=== PATIENT | male | born 1960 | race Caucasian/White ===

== ENCOUNTER 2018-11-30 05:08 | Day surgery (SDC) | payer BC ==
[2018-11-25 16:26] LABS: BASOPHILS # (AUTO) 0.1 X10'3 (0-0.2); BASOPHILS % (AUTO) 1.4 % (0-1); EOSINOPHILS # (AUTO) 0.1 X10'3 (0-0.9); EOSINOPHILS % (AUTO) 1.6 % (0-6); HEMATOCRIT 40.4 % (42.0-52.0); HEMOGLOBIN 13.3 g/dl (14.0-17.9); LYMPHOCYTES # (AUTO) 2.3 X10'3 (1.1-4.8); MEAN CORPUSCULAR HEMOGLOBIN 28.1 PG (27.0-31.0); MEAN CORPUSCULAR HGB CONC 32.8 g/dL (33.0-36.5); MEAN CORPUSCULAR VOLUME 85.6 FL (78-98); MEAN PLATELET VOLUME 8.2 FL (7.4-10.4); MONOCYTES # (AUTO) 0.8 X10'3 (0-0.9); NEUTROPHILS # (AUTO) 4.3 X10'3 (1.8-7.7); PLATELET COUNT 239 X10'3 (140-440); RED BLOOD COUNT 4.72 X10'6 (4.70-6.10); RED CELL DISTRIBUTION WIDTH 13.7 % (11.5-14.5); WHITE BLOOD COUNT 7.6 X10'3 (4.5-11.0)
[2018-11-25 16:39] LABS: PARTIAL THROMBOPLASTIN TIME 30 SECONDS (22-32)
[2018-11-25 16:42] LABS: ALBUMIN 3.5 G/DL (3.4-5.0); ANION GAP 8 (8-16); BLOOD UREA NITROGEN 15 MG/DL (7-18); BUN/CREATININE RATIO 16.7 (5.4-32.0); CALCIUM 9.7 MG/DL (8.5-10.1); CHLORIDE 106 MMOL/L (99-107); GLUCOSE 86 MG/DL (70-104); SODIUM 140 MMOL/L (135-145); TOTAL CARBON DIOXIDE 25.6 MMOL/L (24-32); eGFR 87 ML/MIN
[~2018-11-30] VITALS: Ht 182.9 cm; Wt 110.1 kg
[2018-11-30] VITALS (13 sets, daily range): BP systolic 114–167; BP diastolic 50–112
[2018-11-30] MEDS ORDERED: normal saline 1,000 ML IV SCH (05:30)
[2018-11-30] MEDS ORDERED: diphenhydrAMINE 25mg capsule PO PRN (05:30)
[2018-11-30] MEDS ORDERED: LORazepam 0.5 MG tablet PO PRN (05:30)
[2018-11-30] MEDS ORDERED: LISI1TAB11 PO (05:49)
[2018-11-30] MEDS ORDERED: OMEG1CAP46 PO (05:49)
[2018-11-30] MEDS ORDERED: ESOM20CA PO (05:49)
[2018-11-30] MEDS ORDERED: FERR256T PO (05:49)
[2018-11-30] MEDS ORDERED: CELE200C PO (05:49)
[2018-11-30] MEDS ORDERED: TURM5000 PO (05:49)
[2018-11-30] MEDS ORDERED: METH-360 PO (05:49)
[2018-11-30] MEDS ORDERED: fentaNYL/PF 50MCG/1 ML 2ML syringe ONE (07:26)
[2018-11-30] MEDS ORDERED: midazolam 2 mg/2 ml injection ONE (07:26)
[2018-11-30] MEDS ORDERED: iohexol 350MG/ML 100ml bottle IV ONE ×2 (07:27→08:05)
[2018-11-30] MEDS ORDERED: LIDOcaine 1% (10mg/ml)w/preservative injection 20ml MDV ONE (07:27)
[2018-11-30] MEDS ORDERED: HYDROcodone/acetaminophen 5mg/325mg tablet PO PRN (08:50)
[2018-11-30] MEDS ORDERED: HYDROcodone/acetaminophen 10/325mg tab PO PRN (08:50)
[2018-11-30] MEDS ORDERED: OXAZEpam 15mg capsule PO PRN (08:50)
[2018-11-30] MEDS ORDERED: ondansetron/PF 4mg/2ml inj IV PRN (08:50)
[2018-11-30] MEDS ORDERED: proCHLORperazine 10 MG/2 ml inj IV PRN (08:50)
[2018-12-16] MEDS ORDERED: KRIL1CAP22 PO (17:06)
[2018-12-16] MEDS ORDERED: LISI1TAB11 PO (17:06)
[2018-12-16] MEDS ORDERED: ESOM40CA49 PO (17:06)
[2018-12-16] MEDS ORDERED: LIDO700A32 TOP (17:06)
[2018-12-16] MEDS ORDERED: MAGN400C PO (17:06)
[2018-12-16] MEDS ORDERED: TURM538C PO (17:06)
[2018-12-16] MEDS ORDERED: FERR324T4 PO (17:06)
== END 2018-11-30 10:55 | disposition home or self-care (01) ==
LOC: SSTAY O 05:08
PROVIDERS: ATTEND Internal Medicine Interventional Cardiology
DX: I25.10 Atherosclerotic heart disease of native coronary artery without angina pectoris (principal); I10 Essential (primary) hypertension; E78.5 Hyperlipidemia, unspecified; D64.9 Anemia, unspecified; Z79.899 Other long term (current) drug therapy; E66.9 Obesity, unspecified
CPT/HCPCS: 36415; 80048; 85025; 85610; 85730; 93005; 93458; 99152; 99153; A6257; J1644; J2001; J2250; J3010; J7030; Q0163; Q9967; A4620; C1769

== ENCOUNTER 2018-12-20 05:25 | Inpatient (IN) | payer BC ==
[2018-12-16 13:21] LABS: ABG BASE EXCESS 0.9 mmol/L (-2.0-3.0); ABG HCO3 22.8 mmol/L (22.0-26.0); ABG OXYGEN SATURATION 97.7 % (95-98); ABG PCO2 (T) 29.2 mmHg (35.0-48.0); ABG PH (T) 7.511 (7.350-7.450); ABG PO2 (T) 94.7 mmHg (83-108); ALLEN'S TEST Positive; FCOHb 0.6 % (0.5-1.5); FMetHb 0.1 % (0.3-1.12); TOTAL HEMOGLOBIN 14.5 G/dl (14.0-18.0)
[2018-12-16 15:07] LABS: CLARITY,URINE CLEAR (Clear); COLOR,URINE STRAW (Yellow); GLUCOSE, URINE NEGATIVE (Neg); KETONES,URINE NEGATIVE (Neg); LEUKOCYTE ESTERASE ,URINE NEGATIVE (Neg); NITRITES, URINE NEGATIVE (Neg); OCCULT BLOOD,URINE NEGATIVE (Neg); PROTEIN,URINE NEGATIVE (Neg); UROBILINOGEN,URINE 0.2 E.U/dL (0.2-1.0)
[2018-12-16 15:08] LABS: UA COLLECTION TYPE VOIDED
[2018-12-16 15:13] LABS: BASOPHILS # (AUTO) 0.1 X10'3 (0-0.2); BASOPHILS % (AUTO) 0.9 % (0-1); EOSINOPHILS # (AUTO) 0.1 X10'3 (0-0.9); EOSINOPHILS % (AUTO) 0.7 % (0-6); LYMPHOCYTES # (AUTO) 1.5 X10'3 (1.1-4.8); LYMPHOCYTES % (AUTO) 16.2 % (21-51); MEAN CORPUSCULAR HEMOGLOBIN 28.2 PG (27.0-31.0); MEAN CORPUSCULAR HGB CONC 32.9 g/dL (33.0-36.5); MEAN CORPUSCULAR VOLUME 85.8 FL (78-98); MEAN PLATELET VOLUME 8.5 FL (7.4-10.4); MONOCYTES # (AUTO) 0.8 X10'3 (0-0.9); MONOCYTES % (AUTO) 8.9 % (2-12); NEUTROPHILS # (AUTO) 6.9 X10'3 (1.8-7.7); NEUTROPHILS % (AUTO) 73.3 % (42-75); PRE OP HEMATOCRIT 42.2 % (42.0-52.0); PRE OP HEMOGLOBIN 13.9 g/dL (14.0-17.9); PRE OP PLATELET COUNT 317 X10'3 (140-440); RED BLOOD COUNT 4.92 X10'6 (4.70-6.10); RED CELL DISTRIBUTION WIDTH 14.5 % (11.5-14.5)
[2018-12-16 15:25] LABS: HEMOGLOBIN A1C 5.5 % (4.5-6.2)
[2018-12-16 15:30] LABS: BLOOD UREA NITROGEN 15 MG/DL (7-18); BUN/CREATININE RATIO 17.4 (5.4-32.0); CHLORIDE 100 MMOL/L (99-107); CREATININE 0.86 MG/DL (0.60-1.10); PRE OP ANION GAP 9 (8-16); PRE OP GLUCOSE 107 MG/DL (70-104); PRE OP POTASSIUM 3.8 MMOL/L (3.4-5.1); PRE OP SODIUM 135 MMOL/L (135-145); TOTAL CARBON DIOXIDE 26.4 MMOL/L (24-32)
[2018-12-16 15:31] LABS: ALBUMIN/GLOBULIN RATIO 1.1 (1.1-1.5); ALKALINE PHOSPHATASE 100 IU/L (46-116); CALCIUM 10.4 MG/DL (8.5-10.1); PRE OP ALT 37 U/L (30-65); PRE OP AST 16 U/L (10-37); PRE OP BILIRUB, TOTAL 0.3 MG/DL (0.0-1.0); TOTAL PROTEIN 7.8 G/DL (6.4-8.2); eGFR > 90 ML/MIN
[~2018-12-20] VITALS: Ht 182.9 cm; Wt 109.9 kg
[2018-12-20] VITALS (16 sets, daily range): BP systolic 97–149; BP diastolic 56–96
[~2018-12-20 05:25] MED LIST: CELE200C PO; ESOM40CA49 PO; FERR324T PO; KRIL1CAP22 PO; LIDO700A32 TOP; LISI1TAB11 PO; MAGN400C PO; METH-360 PO; ROPIVAcaine 0.5% (5mg/ml) 30ml vial ONE; TURM5000 PO
[2018-12-20] MEDS ORDERED: vancomycin inj 1,500 MG in normal saline 300ml IV soln IV ONE (05:30)
[2018-12-20] MEDS ORDERED: ringers solution, lacted 1,000 ML IV SCH (05:30)
[2018-12-20] MEDS ORDERED: gabapentin 300mg capsule PO ONE (05:30)
[2018-12-20] MEDS ORDERED: cefazolin/dext.iso 2gm/100 ML IV ONE (05:30)
[2018-12-20] MEDS ORDERED: famotidine 20mg tablet PO ONE (05:30)
[2018-12-20] MEDS ORDERED: mupirocin 2% nasal ointment 1gm UD NS ONE (05:30)
[2018-12-20] MEDS ORDERED: metoprolol tartrate 12.5mg (1/2 tablet) PO ONE (05:30)
[2018-12-20] MEDS ORDERED: LIDOcaine 1% (10mg/ml) 2ml vial ONE (05:42)
[2018-12-20] MEDS ORDERED: LORazepam 2 mg/ml vial ONE ×2 (05:52→06:19)
[2018-12-20] MEDS ORDERED: nitroGLYCERIN in D5W 50mg/250ml (Tridil) infusion IV ONE (06:48)
[2018-12-20] MEDS ORDERED: isoflurane 100ml inhalation liquid IH ONE (06:48)
[2018-12-20] MEDS ORDERED: protamine sulf. 10mg/ml inj. IV ONE (06:48)
[2018-12-20] MEDS ORDERED: DOPamine/D5W 400mg/250ml bag IV ONE (06:48)
[2018-12-20] MEDS ORDERED: SUFENTANIL CITRATE 50 MCG/ML 2ml ampule IV ONE (07:00)
[2018-12-20] MEDS ORDERED: propofol inj 20 ML IV ONE (07:13)
[2018-12-20] MEDS ORDERED: rocuronium 10mg/ml inj IV ONE (07:13)
[2018-12-20] MEDS ORDERED: phenylephrine 10mg/ml inj. ONE ×2 (07:34→14:00)
[2018-12-20] MEDS ORDERED: pancuronium br 1mg/ml inj IV ONE (07:38)
[2018-12-20 07:40] LABS: ABG BASE EXCESS -1.7 mmol/L (-2.0-3.0); ABG HCO3 21.5 mmol/L (22.0-26.0); ABG OXYGEN SATURATION 99.8 % (95-98); ABG PCO2 31.5 mmHg (35.0-45.0); ABG PH 7.451 (7.350-7.450); CL (ABG) 102 mmol/L (99-107); FCOHb 0.6 % (0.5-1.5); FMetHb 0.3 % (0.3-1.12); FO2Hb 98.9 % (94-100); GLUCOSE (ABG) 142 mg/dl (70-105); IONIZED CA (ABG) 1.23 mmol/L (1.03-1.32); K (ABG) 3.9 mmol/L (3.3-5.1); NA (ABG) 135 mmol/L (135-145); TOTAL HEMOGLOBIN 11.9 G/dl (14.0-18.0)
[2018-12-20] MEDS ORDERED: heparin 10,000 units/1 ML INJ IR ONE (07:54)
[2018-12-20] MEDS ORDERED: papaverine 30 mg/ml 2ml inj. IA ONE (07:55)
[2018-12-20] MEDS ORDERED: albuterol 2.5 MG/3 ML nebule NEB PRN (08:20)
[2018-12-20 08:46] LABS: ABG BASE EXCESS -1.6 mmol/L (-2.0-3.0); ABG HCO3 21.5 mmol/L (22.0-26.0); ABG OXYGEN SATURATION 98.9 % (95-98); ABG PCO2 31.1 mmHg (35.0-45.0); ABG PH 7.458 (7.350-7.450); ABG PO2 134.4 mmHg (60.0-100.0); CL (ABG) 103 mmol/L (99-107); FCOHb 0.8 % (0.5-1.5); FMetHb 0.1 % (0.3-1.12); GLUCOSE (ABG) 138 mg/dl (70-105); IONIZED CA (ABG) 1.21 mmol/L (1.03-1.32); K (ABG) 4.3 mmol/L (3.3-5.1); NA (ABG) 133 mmol/L (135-145); TOTAL HEMOGLOBIN 11.6 G/dl (14.0-18.0)
[2018-12-20 09:15] LABS: ABG BASE EXCESS -1.5 mmol/L (-2.0-3.0); ABG HCO3 22.7 mmol/L (22.0-26.0); ABG OXYGEN SATURATION 99.8 % (95-98); ABG PCO2 36.2 mmHg (35.0-45.0); ABG PH 7.416 (7.350-7.450); ABG PO2 385.9 mmHg (60.0-100.0); CL (ABG) 101 mmol/L (99-107); FCOHb 0.5 % (0.5-1.5); FMetHb 0.3 % (0.3-1.12); GLUCOSE (ABG) 149 mg/dl (70-105); IONIZED CA (ABG) 1.12 mmol/L (1.03-1.32); K (ABG) 5.5 mmol/L (3.3-5.1); NA (ABG) 130 mmol/L (135-145); TOTAL HEMOGLOBIN 9.4 G/dl (14.0-18.0)
[2018-12-20 09:30] LABS: ABG BASE EXCESS VENOUS -1.2 mmol/L; ABG HCO3 VENOUS 23.6 mmol/L; ABG PCO2 VENOUS 39.5 mmHg; ABG PO2 VENOUS 56.3 mmHg; CL (ABG) 101 mmol/L (99-107); FCOHb VENOUS 0.7 %; FHHb VENOUS 12.4 %; FMetHb VENOUS 0.6 %; FO2Hb VENOUS 86.3 %; GLUCOSE (ABG) 146 mg/dl (70-105); IONIZED CA (ABG) 1.14 mmol/L (1.03-1.32); K (ABG) 5.1 mmol/L (3.3-5.1); NA (ABG) 131 mmol/L (135-145); TOTAL HEMOGLOBIN 9.6 G/dl (14.0-18.0)
[2018-12-20 09:30] LABS: ACT @ 1.70 U 259 SEC (193-297); ACT @ 2.84 U 357 SEC (260-420); BASELINE ACT 134 SEC (101-148)
[2018-12-20 09:51] LABS: ABG BASE EXCESS 0.6 mmol/L (-2.0-3.0); ABG HCO3 25.4 mmol/L (22.0-26.0); ABG OXYGEN SATURATION 99.5 % (95-98); ABG PCO2 41.2 mmHg (35.0-45.0); ABG PH 7.407 (7.350-7.450); ABG PO2 349.3 mmHg (60.0-100.0); CL (ABG) 101 mmol/L (99-107); FCOHb 0.2 % (0.5-1.5); FMetHb 0.5 % (0.3-1.12); FO2Hb 98.8 % (94-100); GLUCOSE (ABG) 149 mg/dl (70-105); IONIZED CA (ABG) 1.13 mmol/L (1.03-1.32); K (ABG) 5.1 mmol/L (3.3-5.1); NA (ABG) 132 mmol/L (135-145); TOTAL HEMOGLOBIN 9.8 G/dl (14.0-18.0)
[2018-12-20 10:16] LABS: ABG BASE EXCESS -6.4 mmol/L (-2.0-3.0); ABG HCO3 20.5 mmol/L (22.0-26.0); ABG PCO2 47.4 mmHg (35.0-45.0); ABG PH 7.254 (7.350-7.450); ABG PO2 328.8 mmHg (60.0-100.0); CL (ABG) 81 mmol/L (99-107); FCOHb 0.2 % (0.5-1.5); FMetHb 0.7 % (0.3-1.12); FO2Hb 98.1 % (94-100); GLUCOSE (ABG) 126 mg/dl (70-105); IONIZED CA (ABG) 0.99 mmol/L (1.03-1.32); K (ABG) 3.9 mmol/L (3.3-5.1); NA (ABG) 110 mmol/L (135-145); TOTAL HEMOGLOBIN 8.8 G/dl (14.0-18.0)
[2018-12-20 10:51] LABS: ABG BASE EXCESS 0.5 mmol/L (-2.0-3.0); ABG OXYGEN SATURATION 96.9 % (95-98); ABG PCO2 33.9 mmHg (35.0-45.0); ABG PH 7.467 (7.350-7.450); ABG PO2 95.3 mmHg (60.0-100.0); CL (ABG) 103 mmol/L (99-107); FCOHb 0.3 % (0.5-1.5); FMetHb 0.7 % (0.3-1.12); FO2Hb 95.9 % (94-100); GLUCOSE (ABG) 127 mg/dl (70-105); IONIZED CA (ABG) 1.28 mmol/L (1.03-1.32); K (ABG) 4.1 mmol/L (3.3-5.1); NA (ABG) 134 mmol/L (135-145); TOTAL HEMOGLOBIN 9.9 G/dl (14.0-18.0)
[2018-12-20] MEDS ORDERED: acetaminophen 1,000mg/100ml IV 100 ML IV ONE (10:55)
[2018-12-20] MEDS ORDERED: nitroGLYCERIN-Tridil 50MG/D5W 250 ML IV PRN (11:28)
[2018-12-20] MEDS ORDERED: DOPamine 400mg/D5W 250ml 250 ML IV PRN (11:28)
[2018-12-20] MEDS ORDERED: niCARDipine-NS 40mg/200ml IVPB 200 ML IV PRN (11:28)
[2018-12-20] MEDS ORDERED: sodium chloride 0.45% 1,000 ML IV SCH (11:28)
[2018-12-20] MEDS ORDERED: sodium phosphate inj. 30 MMOL in dextrose 5%-water 250 ML IV PRN (11:30)
[2018-12-20] MEDS ORDERED: magnesium 2GM in 50ml NS 50 ML IV PRN (11:30)
[2018-12-20] MEDS ORDERED: dextrose 50%-water 50ml dispensing syringe IV PRN (11:30)
[2018-12-20] MEDS ORDERED: ondansetron/PF 4mg/2ml inj IV PRN (11:30)
[2018-12-20] MEDS ORDERED: metoclopramide 5 mg/ml inj IV PRN (11:30)
[2018-12-20] MEDS ORDERED: normal saline 250ml IV soln 250 ML IV PRN (11:30)
[2018-12-20] MEDS ORDERED: pantoprazole 40 MG vial IV ONE (11:30)
[2018-12-20] MEDS ORDERED: magnesium hydroxide 30ml (MOM) UD suspension PO PRN (11:30)
[2018-12-20] MEDS ORDERED: potassium Cl 20 mEq SR tablet PO PRN (11:30)
[2018-12-20] MEDS ORDERED: Neutra Phos packet PO PRN (11:30)
[2018-12-20] MEDS ORDERED: morphine 4 MG/ML inj SYRINge IV PRN (11:30)
[2018-12-20] MEDS: LIDOcaine 5% patch TP SCH (11:30)
[2018-12-20] MEDS ORDERED: insulin regular, human inj. 100 UNITS in normal saline 100ml IV soln 100 ML IV SCH ×2 (11:30)
[2018-12-20] MEDS ORDERED: acetaminophen 325mg tablet PO PRN (11:30)
[2018-12-20] MEDS ORDERED: magnesium 4gm in 100ml NS 100 ML IV PRN (11:30)
[2018-12-20] MEDS ORDERED: sodium phosphate inj. 15 MMOL in dextrose 5%-water 150 ML IV PRN (11:30)
--- NOTE | 2018-12-20 11:30 | NUR ---
Pt arrived from [facility] accompanied by CVOR team. Report received from Dr. Ryan. Pt hemodynamically stable, sinus rhythm with frequent PVCs noted. Dopamine gtt infusing at 1 mcg/kg/min. Transferred to ICU monitors.
[2018-12-20 11:56] LABS: ABG BASE EXCESS 1.7 mmol/L (-2.0-3.0); ABG HCO3 26.5 mmol/L (22.0-26.0); ABG OXYGEN SATURATION 98.7 % (95-98); ABG PCO2 (T) 42.4 mmHg (35.0-48.0); ABG PH (T) 7.414 (7.350-7.450); ABG PO2 (T) 159.7 mmHg (83-108); FCOHb 0.3 % (0.5-1.5); FMetHb 0.2 % (0.3-1.12); FO2Hb 98.2 % (94-100); PEEP 5 cm H2O; RESPIRATORY RATE 12 b/min; TIDAL VOLUME 700 mL; TOTAL HEMOGLOBIN 12.2 G/dl (14.0-18.0)
[2018-12-20 12:35] LABS: BASOPHILS % (AUTO) 0.1 % (0-1); EOSINOPHILS % (AUTO) 0.2 % (0-6); HEMATOCRIT 34.1 % (42.0-52.0); HEMOGLOBIN 11.3 g/dl (14.0-17.9); LYMPHOCYTES # (AUTO) 0.9 X10'3 (1.1-4.8); LYMPHOCYTES % (AUTO) 7.5 % (21-51); MEAN CORPUSCULAR HEMOGLOBIN 28.5 PG (27.0-31.0); MEAN CORPUSCULAR HGB CONC 33.1 g/dL (33.0-36.5); MEAN PLATELET VOLUME 8.2 FL (7.4-10.4); MONOCYTES # (AUTO) 0.5 X10'3 (0-0.9); MONOCYTES % (AUTO) 4.3 % (2-12); NEUTROPHILS # (AUTO) 10.6 X10'3 (1.8-7.7); NEUTROPHILS % (AUTO) 87.9 % (42-75); PLATELET COUNT 186 X10'3 (140-440); RED BLOOD COUNT 3.97 X10'6 (4.70-6.10); RED CELL DISTRIBUTION WIDTH 14.8 % (11.5-14.5); WHITE BLOOD COUNT 12.1 X10'3 (4.5-11.0)
[2018-12-20] MEDS: insulin regular, human 100 UNIT in normal saline 100ml IV soln 99 ML IV SCH ×4 (12:38→21:44)
[2018-12-20 12:41] LABS: ALANINE AMINOTRANSFERASE 28 U/L (12-78); ALBUMIN 2.9 G/DL (3.4-5.0); ALBUMIN/GLOBULIN RATIO 1.2 (1.1-1.5); ALKALINE PHOSPHATASE 61 IU/L (46-116); ANION GAP 4 (8-16); ASPARTATE AMINO TRANSFERASE 33 U/L (10-37); BILIRUBIN,TOTAL 0.5 MG/DL (0.1-1.0); BLOOD UREA NITROGEN 13 MG/DL (7-18); BUN/CREATININE RATIO 11.1 (5.4-32.0); CALCIUM 9.5 MG/DL (8.5-10.1); CHLORIDE 108 MMOL/L (99-107); CREATININE 1.17 MG/DL (0.60-1.10); GLUCOSE 114 MG/DL (70-104); MAGNESIUM 3.1 MG/DL (1.5-2.4); PHOSPHORUS 1.3 MG/DL (2.3-4.5); POTASSIUM 4.1 MMOL/L (3.5-5.1); SODIUM 141 MMOL/L (135-145); TOTAL CARBON DIOXIDE 29.2 MMOL/L (24-32); TOTAL PROTEIN 5.3 G/DL (6.4-8.2); eGFR 64 ML/MIN
[2018-12-20] MEDS: gabapentin 300mg capsule PO SCH ×2 (12:44→20:59)
[2018-12-20] MEDS: insulin Lispro (HumaLOG) vial - multi-dose SQ SCH ×2 (13:00→18:00)
[2018-12-20 13:20] LABS: ACTIVATED CLOTTING TIME 115 SEC (101-148)
--- NOTE | 2018-12-20 13:30 | NUR ---
Pt BP down to 85/50 (62), CI 2.9, SVR 885, CVP 8. 250 mL 5% Albumin administered.
[2018-12-20 13:37] LABS: PARTIAL THROMBOPLASTIN TIME 25 SECONDS (22-32)
[2018-12-20] MEDS: albumin (Human) 5% 250ml 250 ML IV PRN ×3 (13:41→14:24)
[2018-12-20] MEDS ORDERED: methylPREDNISolone sod. succ. 500mg inj ONE (14:00)
[2018-12-20] MEDS ORDERED: heparin 10,000 units/1 ML INJ ONE ×2 (14:00)
[2018-12-20] MEDS ORDERED: aminocaproic acid 250 MG/1 ML inj. ONE (14:00)
[2018-12-20] MEDS ORDERED: heparin 1,000 units/ml 10ml inj ONE (14:00)
[2018-12-20] MEDS ORDERED: sodium bicarbonate (8.4%) 1 mEq/ml syringe ONE (14:00)
[2018-12-20] MEDS ORDERED: albumin (human) 25% 100 ML IV solution IV ONE (14:00)
[2018-12-20] MEDS ORDERED: magnesium sulf 1 GM/2 ML ONE (14:00)
[2018-12-20] MEDS ORDERED: calcium chloride 100 MG/1 ML inj IV ONE (14:00)
[2018-12-20] MEDS ORDERED: papaverine 30 mg/ml 2ml inj. ONE (14:00)
[2018-12-20] MEDS ORDERED: potassium Cl 2 mEq/ml inj IV ONE (14:00)
[2018-12-20] MEDS ORDERED: LIDOcaine 2% (20 mg/ml) 5ml cardiac syringe ONE (14:00)
[2018-12-20] MEDS: ketorolac tromethamine 15mg/ml inj. IV SCH ×2 (14:01→19:41)
[2018-12-20 14:16] LABS: ABG BASE EXCESS 0.8 mmol/L (-2.0-3.0); ABG HCO3 25.3 mmol/L (22.0-26.0); ABG OXYGEN SATURATION 97.3 % (95-98); ABG PCO2 (T) 40.2 mmHg (35.0-48.0); ABG PH (T) 7.417 (7.350-7.450); ABG PO2 (T) 100.8 mmHg (83-108); FCOHb 0.3 % (0.5-1.5); FMetHb 0.2 % (0.3-1.12); FO2Hb 96.8 % (94-100); PEEP 5 cm H2O; RESPIRATORY RATE 12 b/min; TIDAL VOLUME 700 mL; TOTAL HEMOGLOBIN 11.3 G/dl (14.0-18.0)
--- NOTE | 2018-12-20 14:30 | NUR ---
Pt responded well to volume, PVCs less frequent, ABG obtained.
--- NOTE | 2018-12-20 15:30 | NUR ---
Pt passed weening parameters. Pt extubated. Voice quality is clear and strong. Pt states, "I'm feeling good." Pt denies pain, complains of a substernal "pressure."
[2018-12-20] MEDS: ceFAZolin 1GM/D5W- ADD-VANTAGE 50 ML IV SCH ×2 (16:12→23:28)
[2018-12-20] MEDS: morphine 4 MG/ML inj SYRINge IV PRN ×2 (16:13→19:51)
[2018-12-20] MEDS: HYDROcodone/acetaminophen 10/325mg tab PO PRN ×2 (17:59→23:28)
--- NOTE | 2018-12-20 18:30 | NUR ---
Patient in room ICU 2044. I have received report from Rj MAGANA, and had the opportunity to ask questions and assume patient care.
--- NOTE | 2018-12-20 18:33 | NUR ---
Problems reprioritized. Patient report given, questions answered & plan of care reviewed with IZZY Jaffe.
[2018-12-20 18:41] LABS: BASOPHILS % (AUTO) 0 % (0-1); EOSINOPHILS % (AUTO) 0 % (0-6); HEMATOCRIT 28.4 % (42.0-52.0); HEMOGLOBIN 9.3 g/dl (14.0-17.9); LYMPHOCYTES # (AUTO) 0.3 X10'3 (1.1-4.8); LYMPHOCYTES % (AUTO) 2.4 % (21-51); MEAN CORPUSCULAR HEMOGLOBIN 28.2 PG (27.0-31.0); MEAN CORPUSCULAR HGB CONC 32.8 g/dL (33.0-36.5); MEAN CORPUSCULAR VOLUME 85.8 FL (78-98); MEAN PLATELET VOLUME 8.2 FL (7.4-10.4); MONOCYTES # (AUTO) 0.3 X10'3 (0-0.9); MONOCYTES % (AUTO) 2.6 % (2-12); NEUTROPHILS # (AUTO) 12.5 X10'3 (1.8-7.7); PLATELET COUNT 167 X10'3 (140-440); RED BLOOD COUNT 3.31 X10'6 (4.70-6.10); RED CELL DISTRIBUTION WIDTH 14.9 % (11.5-14.5); WHITE BLOOD COUNT 13.1 X10'3 (4.5-11.0)
[2018-12-20 18:52] LABS: ALBUMIN 3.3 G/DL (3.4-5.0); ANION GAP 14 (8-16); BLOOD UREA NITROGEN 16 MG/DL (7-18); BUN/CREATININE RATIO 12.9 (5.4-32.0); CALCIUM 8.7 MG/DL (8.5-10.1); CHLORIDE 105 MMOL/L (99-107); CREATININE 1.24 MG/DL (0.60-1.10); GLUCOSE 174 MG/DL (70-104); MAGNESIUM 2.1 MG/DL (1.5-2.4); PHOSPHORUS 2.4 MG/DL (2.3-4.5); POTASSIUM 4.2 MMOL/L (3.5-5.1); SODIUM 142 MMOL/L (135-145); TOTAL CARBON DIOXIDE 23.4 MMOL/L (24-32); eGFR 60 ML/MIN
[2018-12-20] MEDS: mupirocin 2% nasal ointment 1gm UD NS SCH (19:38)
[2018-12-20] MEDS: vancomycin/NS 1 GM ADD-VANTAGE 250 ML IV SCH (19:38)
[2018-12-20] MEDS: docusate sod 100mg capsule PO SCH (19:39)
--- NOTE | 2018-12-20 19:45 | NUR ---
PT resting in bed with no s/s of distress noted at this time. VSS. Visitors at bedside. CVP, AL and PA all transduced to Pressure tubing, and zeroed. CTs are CDI, serosanguineous drainage noted in tubing. Reeves draining to gravity. Bed is locked and low. Call light is within reach. Will continue to monitor.
--- NOTE | 2018-12-20 23:30 | NUR ---
PT sleeping with no s/s of distress noted at this time. VSS. Bed is locked and low. Call light is within reach. Will continue to monitor.
[2018-12-21] VITALS (24 sets, daily range): BP systolic 90–152; BP diastolic 52–89
[2018-12-21] MEDS: ketorolac tromethamine 15mg/ml inj. IV SCH ×2 (02:00→08:00)
[2018-12-21 02:49] LABS: BASOPHILS % (AUTO) 0.1 % (0-1); EOSINOPHILS % (AUTO) 0 % (0-6); HEMATOCRIT 25.6 % (42.0-52.0); HEMOGLOBIN 8.4 g/dl (14.0-17.9); LYMPHOCYTES # (AUTO) 0.6 X10'3 (1.1-4.8); LYMPHOCYTES % (AUTO) 3.6 % (21-51); MEAN CORPUSCULAR HEMOGLOBIN 28.3 PG (27.0-31.0); MEAN CORPUSCULAR HGB CONC 32.7 g/dL (33.0-36.5); MEAN CORPUSCULAR VOLUME 86.5 FL (78-98); MEAN PLATELET VOLUME 8.1 FL (7.4-10.4); MONOCYTES # (AUTO) 0.6 X10'3 (0-0.9); MONOCYTES % (AUTO) 3.8 % (2-12); NEUTROPHILS # (AUTO) 14.9 X10'3 (1.8-7.7); NEUTROPHILS % (AUTO) 92.5 % (42-75); PLATELET COUNT 156 X10'3 (140-440); RED BLOOD COUNT 2.96 X10'6 (4.70-6.10); RED CELL DISTRIBUTION WIDTH 14.8 % (11.5-14.5); WHITE BLOOD COUNT 16.2 X10'3 (4.5-11.0)
[2018-12-21 03:07] LABS: ALANINE AMINOTRANSFERASE 23 U/L (12-78); ALBUMIN/GLOBULIN RATIO 1.3 (1.1-1.5); ALKALINE PHOSPHATASE 47 IU/L (46-116); ANION GAP 6 (8-16); ASPARTATE AMINO TRANSFERASE 36 U/L (10-37); BILIRUBIN,TOTAL 0.4 MG/DL (0.1-1.0); BLOOD UREA NITROGEN 14 MG/DL (7-18); CALCIUM 8.6 MG/DL (8.5-10.1); CHLORIDE 105 MMOL/L (99-107); GLUCOSE 110 MG/DL (70-104); MAGNESIUM 1.9 MG/DL (1.5-2.4); PHOSPHORUS 3.1 MG/DL (2.3-4.5); POTASSIUM 4.3 MMOL/L (3.5-5.1); SODIUM 137 MMOL/L (135-145); TOTAL PROTEIN 5.4 G/DL (6.4-8.2); eGFR 76 ML/MIN
[2018-12-21 03:13] LABS: PARTIAL THROMBOPLASTIN TIME 29 SECONDS (22-32)
[2018-12-21] MEDS: potassium Cl 20mEq/100mL bag 100 ML IV PRN ×2 (03:25→05:44)
--- NOTE | 2018-12-21 05:30 | NUR ---
PT up to side of bed to dangle with 2 person assist. PT tolerated well. Stood @ side of bed and continued to tolerate well, no c/o light headedness or dizziness. PT now sitting up in chair. Call light is within reach. Will continue to monitor.
[2018-12-21] MEDS: HYDROcodone/acetaminophen 10/325mg tab PO PRN ×4 (05:54→21:42)
--- NOTE | 2018-12-21 06:40 | NUR ---
Problems reprioritized. Patient report given, questions answered & plan of care reviewed with Rj MAGANA.
[2018-12-21] MEDS: metoprolol tartrate 12.5mg (1/2 tablet) PO SCH ×2 (08:00→19:57)
[2018-12-21] MEDS: ceFAZolin 1GM/D5W- ADD-VANTAGE 50 ML IV SCH ×2 (08:00→15:39)
[2018-12-21] MEDS: aspirin 325mg tablet, delayed-release (Ecotrin) PO SCH (08:00)
[2018-12-21] MEDS: mupirocin 2% nasal ointment 1gm UD NS SCH ×2 (08:00→19:52)
[2018-12-21] MEDS: atorvastatin 10mg tablet PO SCH (08:00)
[2018-12-21] MEDS: docusate sod 100mg capsule PO SCH ×2 (08:00→19:53)
[2018-12-21] MEDS: vancomycin/NS 1 GM ADD-VANTAGE 250 ML IV SCH ×2 (08:00→19:52)
[2018-12-21] MEDS: LIDOcaine 5% patch TP SCH (08:00)
[2018-12-21] MEDS: gabapentin 300mg capsule PO SCH ×3 (08:00→21:35)
[2018-12-21] MEDS: insulin Lispro (HumaLOG) vial - multi-dose SQ SCH ×3 (09:18→18:58)
--- NOTE | 2018-12-21 10:30 | NUR ---
ART line removed, pressure held and pressure dressing applied to L wrist
--- NOTE | 2018-12-21 11:30 | NUR ---
PAC line discontinued, pressure held and gauze applied, RIJ dressing changed.
[2018-12-21] MEDS ORDERED: dextrose 50%-water 50ml dispensing syringe IV PRN ×2 (14:40)
[2018-12-21] MEDS ORDERED: MESSAGE TO PHARMACY PO ONE (14:40)
[2018-12-21] MEDS ORDERED: dextrose ORAL solution 15 GM/59 ML bottle PO PRN ×2 (14:40)
[2018-12-21] MEDS ORDERED: glucagon, human recombinant 1mg kit SUBCUT PRN (14:40)
--- NOTE | 2018-12-21 18:20 | NUR ---
Patient in room ICU 2044. I have received report from Neeraj Porras RN and had the opportunity to ask questions and assume patient care.
--- NOTE | 2018-12-21 18:24 | NUR ---
Problems re-prioritized. Patient report given, questions answered & plan of care reviewed with Alannah Guzman RN.
--- NOTE | 2018-12-21 19:30 | NUR ---
PT is sitting up in chair with visitors at bedside. VSS. PT on RA and tolerating well. PT states pain is under control at this time. Call light is within reach. Will continue to monitor.
[2018-12-21] MEDS: lactobacillus rhamnosus 10,000 MMU CELLS/CAPSULE PO SCH (19:53)
[2018-12-21] MEDS: insulin glargine (Lantus) pen - multi-dose SQ SCH (21:40)
--- NOTE | 2018-12-21 23:30 | NUR ---
PT is sleeping at this time. VSS. Bed is locked and low. Call light is within reach. Will continue to monitor.
[2018-12-22] VITALS (15 sets, daily range): BP systolic 102–134; BP diastolic 41–89
[2018-12-22] MEDS: ceFAZolin 1GM/D5W- ADD-VANTAGE 50 ML IV SCH (01:07)
[2018-12-22] MEDS: HYDROcodone/acetaminophen 10/325mg tab PO PRN ×2 (02:54→18:48)
--- NOTE | 2018-12-22 03:00 | NUR ---
PT woke up painful, PRN Hermon given and PT repositioned. Bed is locked and low. Call light is within reach. Will continue to monitor.
[2018-12-22 03:10] LABS: BASOPHILS % (AUTO) 0.2 % (0-1); EOSINOPHILS % (AUTO) 0 % (0-6); HEMATOCRIT 26.8 % (42.0-52.0); HEMOGLOBIN 8.8 g/dl (14.0-17.9); LYMPHOCYTES # (AUTO) 0.8 X10'3 (1.1-4.8); LYMPHOCYTES % (AUTO) 4.7 % (21-51); MEAN CORPUSCULAR HEMOGLOBIN 28.2 PG (27.0-31.0); MEAN CORPUSCULAR HGB CONC 32.6 g/dL (33.0-36.5); MEAN CORPUSCULAR VOLUME 86.3 FL (78-98); MEAN PLATELET VOLUME 8.1 FL (7.4-10.4); MONOCYTES # (AUTO) 1.2 X10'3 (0-0.9); MONOCYTES % (AUTO) 6.9 % (2-12); NEUTROPHILS # (AUTO) 14.7 X10'3 (1.8-7.7); NEUTROPHILS % (AUTO) 88.2 % (42-75); PLATELET COUNT 148 X10'3 (140-440); RED BLOOD COUNT 3.11 X10'6 (4.70-6.10); RED CELL DISTRIBUTION WIDTH 15.4 % (11.5-14.5); WHITE BLOOD COUNT 16.7 X10'3 (4.5-11.0)
[2018-12-22 03:17] LABS: ALBUMIN 3.1 G/DL (3.4-5.0); ANION GAP 3 (8-16); BLOOD UREA NITROGEN 18 MG/DL (7-18); BUN/CREATININE RATIO 20.2 (5.4-32.0); CHLORIDE 102 MMOL/L (99-107); CREATININE 0.89 MG/DL (0.60-1.10); GLUCOSE 153 MG/DL (70-104); MAGNESIUM 2.3 MG/DL (1.5-2.4); PHOSPHORUS 2.6 MG/DL (2.3-4.5); SODIUM 135 MMOL/L (135-145); TOTAL CARBON DIOXIDE 29.8 MMOL/L (24-32); eGFR 87 ML/MIN
--- NOTE | 2018-12-22 06:33 | NUR ---
Problems reprioritized. Patient report given, questions answered & plan of care reviewed with Ananth MAGANA.
[2018-12-22] MEDS ORDERED: magnesium Cl slow-release 64mg tablet PO PRN (07:00)
[2018-12-22] MEDS ORDERED: potassium CL 10mEq/100ml bag 100 ML IV PRN (07:00)
[2018-12-22] MEDS ORDERED: potassium Cl 20 mEq SR tablet PO PRN ×2 (07:00)
[2018-12-22] MEDS ORDERED: potassium Cl 40MEQ/NS 500ml 500 ML IV PRN (07:00)
[2018-12-22] MEDS ORDERED: magnesium 4gm in 100ml NS 100 ML IV PRN (07:00)
[2018-12-22] MEDS ORDERED: magnesium 2GM in 50ml NS 50 ML IV PRN (07:00)
[2018-12-22] MEDS: pantoprazole 40mg Tablet.DR PO SCH (07:22)
[2018-12-22] MEDS: gabapentin 300mg capsule PO SCH (07:49)
[2018-12-22] MEDS: lactobacillus rhamnosus 10,000 MMU CELLS/CAPSULE PO SCH ×2 (07:50→20:00)
[2018-12-22] MEDS: metoprolol tartrate 12.5mg (1/2 tablet) PO SCH ×2 (07:50→18:47)
[2018-12-22] MEDS: aspirin 325mg tablet, delayed-release (Ecotrin) PO SCH (07:50)
[2018-12-22] MEDS: docusate sod 100mg capsule PO SCH ×2 (07:50→18:54)
[2018-12-22] MEDS: atorvastatin 10mg tablet PO SCH (07:51)
[2018-12-22] MEDS: mupirocin 2% nasal ointment 1gm UD NS SCH (07:51)
[2018-12-22] MEDS: magnesium Cl slow-release 64mg tablet PO SCH ×3 (07:53→18:47)
[2018-12-22] MEDS: potassium Cl 20 mEq SR tablet PO SCH ×3 (07:53→18:55)
[2018-12-22] MEDS: LIDOcaine 5% patch TP SCH (08:00)
[2018-12-22] MEDS: K and/or MAG REPLACEMENT MC SCH (08:00)
--- NOTE | 2018-12-22 09:57 | NUR ---
Patient in room ICU 2044. I have received report from DESTINY Bennett RN and had the opportunity to ask questions and assume patient care.
--- NOTE | 2018-12-22 11:07 | NUR ---
Pt received from Ananth MAGANA and transferred from ICU 2044. Pt placed in bed and oriented to room, call light, hooked up to monitor system. Family at bedside,
[2018-12-22] MEDS: insulin Lispro (HumaLOG) vial - multi-dose SQ SCH (14:06)
--- NOTE | 2018-12-22 18:41 | NUR ---
Problems reprioritized. Patient report given, questions answered & plan of care reviewed with СВЕТЛАНА MAGANA.
[2018-12-22] MEDS ORDERED: metoprolol tartrate 12.5mg (1/2 tablet) PO SCH (18:50)
--- NOTE | 2018-12-22 19:38 | NUR ---
PT STATES HE IS USING FLUTTER AND IS ON A REGULAR BASIS, HOWEVER HE COULD NOT DEMONSTRATE FOR RT AT THE TIME DUE TO PT HAVING EPISODE OF TACHYCARDIA AND WAS WORRIED THAT HE WOULD HAVE ANOTHER EPISODE. Addendum: 12/22/18 at 0 by Bernadette Francois RT Amended: Links added.
[2018-12-22] MEDS: insulin glargine (Lantus) pen - multi-dose SQ SCH (21:41)
[2018-12-23 02:30] VITALS: BP 134/75
[2018-12-23 05:50] LABS: BASOPHILS % (AUTO) 0.3 % (0-1); EOSINOPHILS # (AUTO) 0.1 X10'3 (0-0.9); EOSINOPHILS % (AUTO) 1.4 % (0-6); HEMATOCRIT 26.2 % (42.0-52.0); HEMOGLOBIN 8.7 g/dl (14.0-17.9); LYMPHOCYTES # (AUTO) 1.3 X10'3 (1.1-4.8); LYMPHOCYTES % (AUTO) 12.8 % (21-51); MEAN CORPUSCULAR HEMOGLOBIN 28.7 PG (27.0-31.0); MEAN CORPUSCULAR HGB CONC 33.3 g/dL (33.0-36.5); MEAN CORPUSCULAR VOLUME 86.2 FL (78-98); MEAN PLATELET VOLUME 8.3 FL (7.4-10.4); MONOCYTES # (AUTO) 0.8 X10'3 (0-0.9); MONOCYTES % (AUTO) 7.9 % (2-12); NEUTROPHILS # (AUTO) 7.6 X10'3 (1.8-7.7); NEUTROPHILS % (AUTO) 77.6 % (42-75); PLATELET COUNT 150 X10'3 (140-440); RED BLOOD COUNT 3.04 X10'6 (4.70-6.10); RED CELL DISTRIBUTION WIDTH 14.6 % (11.5-14.5); WHITE BLOOD COUNT 9.8 X10'3 (4.5-11.0)
[2018-12-23 06:00] VITALS: BP 166/73
[2018-12-23 06:48] LABS: ALBUMIN 2.7 G/DL (3.4-5.0); ANION GAP 4 (8-16); BLOOD UREA NITROGEN 16 MG/DL (7-18); BUN/CREATININE RATIO 19.3 (5.4-32.0); CALCIUM 8.8 MG/DL (8.5-10.1); CHLORIDE 102 MMOL/L (99-107); CREATININE 0.83 MG/DL (0.60-1.10); GLUCOSE 108 MG/DL (70-104); POTASSIUM 4.2 MMOL/L (3.5-5.1); SODIUM 135 MMOL/L (135-145); TOTAL CARBON DIOXIDE 28.8 MMOL/L (24-32); eGFR > 90 ML/MIN
[2018-12-23] MEDS ORDERED: furosemide 40mg/4ml inj IV ONE (07:20)
[2018-12-23] MEDS: potassium Cl 20 mEq SR tablet PO SCH ×2 (07:31→21:00)
[2018-12-23] MEDS: lactobacillus rhamnosus 10,000 MMU CELLS/CAPSULE PO SCH ×2 (07:32→20:59)
[2018-12-23] MEDS: pantoprazole 40mg Tablet.DR PO SCH (07:32)
[2018-12-23] MEDS: docusate sod 100mg capsule PO SCH ×2 (07:32→20:59)
[2018-12-23] MEDS: magnesium Cl slow-release 64mg tablet PO SCH ×2 (07:32→21:01)
[2018-12-23] MEDS: atorvastatin 10mg tablet PO SCH (07:32)
[2018-12-23] MEDS: metoprolol tartrate 50mg tablet PO SCH ×2 (07:37→21:01)
[2018-12-23] MEDS: aspirin 81mg tab.chew PO SCH (07:38)
[2018-12-23] MEDS: K and/or MAG REPLACEMENT MC SCH (07:40)
[2018-12-23] MEDS: LIDOcaine 5% patch TP SCH (07:41)
[2018-12-23] MEDS ORDERED: metoprolol tartrate 25mg tablet PO SCH (08:00)
[2018-12-23 11:11] VITALS: BP 118/74
[2018-12-23] MEDS: HYDROcodone/acetaminophen 10/325mg tab PO PRN (13:02)
--- NOTE | 2018-12-23 14:23 | NUR ---
CABG consult, patient is s/p CABG x4 on 12/20, patient and family seen at bedside and given written post cardiac surgery diet education handout with verbal review and written heart healthy education handout with verbal review. Eating fair, 50-74% of no concentrated sweets. Pt reports his appetite was great right out of surgery but had a rough day yesterday. Agrees to ensure high protein with breakfast. Reports no currently problem with constipation and is receiving colace, he will communicate with RN if he has any problems with BM. Will continue to follow. Recommend: 1. continue no concentrated sweets 2. continue bowel care 3. Wt per rx 4. Send ensure high protein with breakfast Addendum: 12/23/18 at [address] Amended: Links added.
[2018-12-23 15:00] VITALS: BP 117/72
[2018-12-23 18:00] VITALS: BP 129/74
--- NOTE | 2018-12-23 18:35 | NUR ---
Patient in room MED 310. I have received report from IZZY Jimenez and had the opportunity to ask questions and assume patient care.
--- NOTE | 2018-12-23 18:37 | NUR ---
Problems reprioritized. Patient report given, questions answered & plan of care reviewed with Shital MAGANA.
[2018-12-23] MEDS ORDERED: amiodarone 150mg/dext, iso-os 100 ML IV ONE (19:35)
--- NOTE | 2018-12-23 20:00 | NUR ---
At approx. 1915 during this shift the patient's heart rate went up to 180 BPM. Patient had been on the commode having a BM at this time. Staff got the patient into bed. Patient became symptomatic. He reported that he could "feel his heart". Patient has been having frequent PVCs. He had greater than 5 beat run of Vtach prior to this shift and during this episode also greater than 5 beat run and then continued tachycardia with HR of 160s to 180s. I contacted Dr. Murillo and reported this to him. He ordered a loading dose of Amiodarone of 1.5 mg/100 mL and then following Amiodarone protocol. I will continue to monitor this patient.
[2018-12-23] MEDS: amiodarone/D5 360MG/200ML BAG 200 ML IV SCH (20:07)
[2018-12-23] MEDS: insulin glargine (Lantus) pen - multi-dose SQ SCH (21:00)
[2018-12-23] MEDS: lisinopril 10 MG tablet PO SCH (21:02)
[2018-12-23 22:00] VITALS: BP 128/77
[2018-12-24] VITALS (13 sets, daily range): BP systolic 120–155; BP diastolic 75–97
[2018-12-24] MEDS: amiodarone/D5 360MG/200ML BAG 200 ML IV SCH ×3 (01:55→16:33)
--- NOTE | 2018-12-24 03:23 | NUR ---
At approximately 0300 this shift, patient HR dropped down to into the low 40s. as low at 41 BPM. I noted that since approx. 0200 the patient's HR has been in sinus rhythm. I checked the patient's BP which is WNL and monitored the rhythm strip for several more minutes. The patient HR dropped approx. 5-6 more time into the low 40s. I contacted Dr. Murillo and reported this to Him. Dr. Murillo gave the order to stop the drip and this time and continue to monitor the patient. I will continue to monitor this patient for the duration of this shift and will report this to the oncoming shift.
--- NOTE | 2018-12-24 05:00 | NUR ---
At 0452 patient HR praveen up to 160s. Patient was having his blood drawn and I went in to check on him as he has been sleeping and his HR has been WNL in the 70s with no ectopy. When I walked in the room and began to speak with the patient His HR almost immediately increased to the 150s and as high as 160s with the monitor showing runs of non-sustained V-tach and showing in and out of A-fib. I contacted Dr. Murillo and he ordered the Amiodarone drip to be turned back on and that an order for cardiology consultation be put in place. I restarted the Amiodarone drip at 0.5 mg/minute with a rate of 16.6 mL/hr. I will continue to monitor patient for duration of shift.
[2018-12-24 05:59] LABS: BASOPHILS % (AUTO) 0.3 % (0-1); EOSINOPHILS # (AUTO) 0.2 X10'3 (0-0.9); EOSINOPHILS % (AUTO) 2.1 % (0-6); HEMOGLOBIN 9.7 g/dl (14.0-17.9); LYMPHOCYTES # (AUTO) 1.4 X10'3 (1.1-4.8); MEAN CORPUSCULAR HEMOGLOBIN 28.4 PG (27.0-31.0); MEAN CORPUSCULAR HGB CONC 33.3 g/dL (33.0-36.5); MEAN CORPUSCULAR VOLUME 85.3 FL (78-98); MEAN PLATELET VOLUME 8.2 FL (7.4-10.4); MONOCYTES # (AUTO) 0.9 X10'3 (0-0.9); MONOCYTES % (AUTO) 9.8 % (2-12); NEUTROPHILS # (AUTO) 6.3 X10'3 (1.8-7.7); NEUTROPHILS % (AUTO) 71.8 % (42-75); PLATELET COUNT 186 X10'3 (140-440); RED BLOOD COUNT 3.41 X10'6 (4.70-6.10); RED CELL DISTRIBUTION WIDTH 14.3 % (11.5-14.5); WHITE BLOOD COUNT 8.7 X10'3 (4.5-11.0)
--- NOTE | 2018-12-24 06:00 | NUR ---
Problems reprioritized. Patient report given, questions answered & plan of care reviewed with IZZY Morin.
[2018-12-24 06:30] LABS: ALBUMIN 2.8 G/DL (3.4-5.0); ANION GAP 6 (8-16); BLOOD UREA NITROGEN 12 MG/DL (7-18); BUN/CREATININE RATIO 16.9 (5.4-32.0); CALCIUM 9.5 MG/DL (8.5-10.1); CHLORIDE 103 MMOL/L (99-107); CREATININE 0.71 MG/DL (0.60-1.10); GLUCOSE 114 MG/DL (70-104); MAGNESIUM 2.1 MG/DL (1.5-2.4); POTASSIUM 4.1 MMOL/L (3.5-5.1); SODIUM 138 MMOL/L (135-145); eGFR > 90 ML/MIN
[2018-12-24] MEDS ORDERED: magnesium 2GM in 50ml NS 50 ML IV ONE (07:40)
[2018-12-24] MEDS: lactobacillus rhamnosus 10,000 MMU CELLS/CAPSULE PO SCH ×2 (07:56→21:18)
[2018-12-24] MEDS: metoprolol tartrate 50mg tablet PO SCH (07:58)
[2018-12-24] MEDS: docusate sod 100mg capsule PO SCH ×2 (07:58→21:17)
[2018-12-24] MEDS: aspirin 81mg tab.chew PO SCH (07:59)
[2018-12-24] MEDS: potassium Cl 20 mEq SR tablet PO SCH ×2 (07:59→21:19)
[2018-12-24] MEDS: pantoprazole 40mg Tablet.DR PO SCH (07:59)
[2018-12-24] MEDS: magnesium Cl slow-release 64mg tablet PO SCH ×2 (08:00→21:20)
[2018-12-24] MEDS: LIDOcaine 5% patch TP SCH (08:00)
[2018-12-24] MEDS: K and/or MAG REPLACEMENT MC SCH (08:00)
[2018-12-24] MEDS: lactose-reduced food (Ensure High Protein) 237ml bottle PO SCH (08:23)
[2018-12-24] MEDS: apixaban 5mg tablet PO SCH ×2 (09:04→21:18)
[2018-12-24] MEDS: insulin Lispro (HumaLOG) vial - multi-dose SQ SCH ×2 (09:10→14:15)
--- NOTE | 2018-12-24 09:30 | NUR ---
PATIENT HEART RHYTHM CONVERTED TO SR
[2018-12-24] MEDS ORDERED: metoprolol tartrate 25mg tablet PO ONE (09:35)
--- NOTE | 2018-12-24 12:47 | NUR ---
DR. YAO AT BEDSIDE. NEW ORDERS RECEIVED: AMIO 200MG PO BID TO START 12/25 0800, TURN AMIO GTT OFF 1 HR POST ORAL ADMINISTRATION.
--- NOTE | 2018-12-24 15:14 | NUR ---
MAYCOL AT BEDSIDE. UPDATED ON PATIENT CONDITION - MUFTI CONSULT, LOPRESSOR INCREASED, AMIO GTT TURN OFF PLAN AND AMIO PO START. NEW ORDER RECEIVED: PSYLLIUM SEED PACKET PO BID AFTER LUNCH AND AFTER DINNER.
--- NOTE | 2018-12-24 18:00 | NUR ---
Patient in room MED 310. I have received report from IZZY Morin and had the opportunity to ask questions and assume patient care.
--- NOTE | 2018-12-24 18:07 | NUR ---
pt report given to Micheline MAGANA; all questions answered.
[2018-12-24] MEDS ORDERED: atorvastatin 10mg tablet PO SCH (21:00)
[2018-12-24] MEDS: insulin glargine (Lantus) pen - multi-dose SQ SCH (21:00)
[2018-12-24] MEDS: metoprolol tartrate 25mg tablet PO SCH (21:20)
[2018-12-24] MEDS: lisinopril 10 MG tablet PO SCH (21:27)
[2018-12-25 02:00] VITALS: BP 138/88
[2018-12-25] MEDS: amiodarone/D5 360MG/200ML BAG 200 ML IV SCH (02:09)
[2018-12-25 06:00] VITALS: BP 141/85
--- NOTE | 2018-12-25 06:00 | NUR ---
Problems reprioritized. Patient report given, questions answered & plan of care reviewed with IZZY Morin.
--- NOTE | 2018-12-25 06:14 | NUR ---
Patient in room MED 310. I have received report from Micheline MAGANA and had the opportunity to ask questions and assume patient care.
[2018-12-25 06:35] LABS: BASOPHILS % (AUTO) 0.4 % (0-1); EOSINOPHILS # (AUTO) 0.2 X10'3 (0-0.9); EOSINOPHILS % (AUTO) 2.5 % (0-6); HEMATOCRIT 28.1 % (42.0-52.0); HEMOGLOBIN 9.3 g/dl (14.0-17.9); LYMPHOCYTES # (AUTO) 1.4 X10'3 (1.1-4.8); LYMPHOCYTES % (AUTO) 16.8 % (21-51); MEAN CORPUSCULAR HEMOGLOBIN 28.1 PG (27.0-31.0); MEAN CORPUSCULAR VOLUME 85.1 FL (78-98); MEAN PLATELET VOLUME 7.9 FL (7.4-10.4); MONOCYTES # (AUTO) 0.8 X10'3 (0-0.9); MONOCYTES % (AUTO) 9.5 % (2-12); NEUTROPHILS # (AUTO) 5.7 X10'3 (1.8-7.7); NEUTROPHILS % (AUTO) 70.8 % (42-75); PLATELET COUNT 224 X10'3 (140-440); RED CELL DISTRIBUTION WIDTH 14.2 % (11.5-14.5)
[2018-12-25 07:00] VITALS: BP 145/92
[2018-12-25] MEDS: lactobacillus rhamnosus 10,000 MMU CELLS/CAPSULE PO SCH (07:37)
[2018-12-25] MEDS: docusate sod 100mg capsule PO SCH (07:37)
[2018-12-25] MEDS: apixaban 5mg tablet PO SCH (07:37)
[2018-12-25] MEDS: aspirin 81mg tab.chew PO SCH (07:37)
[2018-12-25] MEDS: pantoprazole 40mg Tablet.DR PO SCH (07:37)
[2018-12-25] MEDS: metoprolol tartrate 25mg tablet PO SCH (07:38)
[2018-12-25] MEDS: lactose-reduced food (Ensure High Protein) 237ml bottle PO SCH (07:41)
[2018-12-25 07:54] LABS: ALBUMIN 2.5 G/DL (3.4-5.0); ANION GAP 8 (8-16); BLOOD UREA NITROGEN 11 MG/DL (7-18); BUN/CREATININE RATIO 13.1 (5.4-32.0); CALCIUM 9.5 MG/DL (8.5-10.1); CHLORIDE 104 MMOL/L (99-107); CREATININE 0.84 MG/DL (0.60-1.10); GLUCOSE 109 MG/DL (70-104); POTASSIUM 4.2 MMOL/L (3.5-5.1); SODIUM 139 MMOL/L (135-145); TOTAL CARBON DIOXIDE 27.2 MMOL/L (24-32); eGFR > 90 ML/MIN
[2018-12-25 08:00] VITALS: BP 128/76
[2018-12-25] MEDS: K and/or MAG REPLACEMENT MC SCH (08:00)
[2018-12-25] MEDS: LIDOcaine 5% patch TP SCH (08:00)
[2018-12-25] MEDS ORDERED: amiodarone 200mg tablet PO SCH (08:00)
[2018-12-25] MEDS: magnesium Cl slow-release 64mg tablet PO SCH (08:44)
[2018-12-25] MEDS: potassium Cl 20 mEq SR tablet PO SCH (08:44)
[2018-12-25] MEDS ORDERED: LISI10TA4 PO (10:38)
[2018-12-25] MEDS ORDERED: ATOR10TA PO (10:38)
[2018-12-25] MEDS ORDERED: APIX5TAB3 PO (10:38)
[2018-12-25] MEDS ORDERED: METO25TA6 PO (10:38)
[2018-12-25] MEDS ORDERED: ASPI-1265 PO (10:38)
[2018-12-25] MEDS ORDERED: AMIO200T40 PO (10:38)
[2018-12-25 11:00] VITALS: BP 128/79
--- NOTE | 2018-12-25 11:29 | NUR ---
discharge education provided; all questions answered. pt provided with follow up information. pt removed from cardiac monitoring and IV removed; cannula intact.
--- NOTE | 2018-12-25 11:30 | NUR ---
pt wheeled downstairs with all belongings.
== END 2018-12-25 11:30 | disposition home health service (06) | DRG 236 ==
LOC: PAS IN 05:25 → EDSTATUS 07:30 → ICU 2S 11:25 → MED 3N 12-22 10:37
PROVIDERS: ADMIT Thoracic Surgery (Cardiothoracic Vascular Surgery); ATTEND Thoracic Surgery (Cardiothoracic Vascular Surgery)
PROC: 021209W Bypass Coronary Artery, Three Arteries from Aorta with Autologous Venous Tissue, Open Approach (ICD-10-PCS; 2018-12-20)
PROC: 06BP4ZZ Excision of Right Saphenous Vein, Percutaneous Endoscopic Approach (ICD-10-PCS; 2018-12-20)
PROC: 02HQ32Z Insertion of Monitoring Device into Right Pulmonary Artery, Percutaneous Approach (ICD-10-PCS; 2018-12-20)
PROC: 02HV33Z Insertion of Infusion Device into Superior Vena Cava, Percutaneous Approach (ICD-10-PCS; 2018-12-20)
PROC: 5A1221Z Performance of Cardiac Output, Continuous (ICD-10-PCS; 2018-12-20)
PROC: B24BZZ4 Ultrasonography of Heart with Aorta, Transesophageal (ICD-10-PCS; 2018-12-20)
PROC: 02100Z9 Bypass Coronary Artery, One Artery from Left Internal Mammary, Open Approach (ICD-10-PCS; principal; 2018-12-20 06:48)
DX: I25.10 Atherosclerotic heart disease of native coronary artery without angina pectoris (principal); I47.2 Ventricular tachycardia; D64.9 Anemia, unspecified; E66.9 Obesity, unspecified; F17.200 Nicotine dependence, unspecified, uncomplicated; I10 Essential (primary) hypertension; I48.0 Paroxysmal atrial fibrillation; R94.39 Abnormal result of other cardiovascular function study; M19.90 Unspecified osteoarthritis, unspecified site; Z79.899 Other long term (current) drug therapy; Z82.49 Family history of ischemic heart disease and other diseases of the circulatory system; Z68.32 Body mass index [BMI] 32.0-32.9, adult; Z71.6 Tobacco abuse counseling; R00.1 Bradycardia, unspecified; T46.2X5A Adverse effect of other antidysrhythmic drugs, initial encounter; Y92.238 Other place in hospital as the place of occurrence of the external cause
CPT/HCPCS: 0232T; 93312; 93325; Z7506; Z7508; 36415; 36600; 71045; 71046; 80048; 80053; 81003; 82330; 82435; 82803; 82947; 82948; 83036; 83735; 84100; 84132; 84295; 85018; 85025; 85347; 85384; 85610; 85730; 86885; 86900; 86901; 86920; 87070; 93005; 93880; 93922; 93970; 94002; 94010; 94667; 94668; 94760; 97110; 97116; 97161; 97530; A6255; A6258; A6402; A6449; A7000; A7048; C1751; C9113; G0378; J0131; J0282; J0690; J1265; J1644; J1815; J1885; J1940; J2001; J2060; J2150; J2270; J2370; J2405; J2440; J2704; J2720; J2795; J2930; J3370; J3475; J3480; J3490; J7030; J7060; J7120; P9045; P9047

== ENCOUNTER 2019-01-11 14:35 | Inpatient (IN) | payer BC ==
[2019-01-11] VITALS (7 sets, daily range): BP systolic 128–160; BP diastolic 77–85
[~2019-01-11] VITALS: Ht 182.9 cm; Wt 105.5 kg
[~2019-01-11 14:35] MED LIST changes: +AMIO200T40 PO; +APIX5TAB3 PO; +ASPI-1265 PO; +ATOR10TA PO; +LISI10TA4 PO; -LISI1TAB11 PO; +METO25TA6 PO; -ROPIVAcaine 0.5% (5mg/ml) 30ml vial ONE
[2019-01-11 15:39] LABS: BASOPHILS # (AUTO) 0.1 X10'3 (0-0.2); BASOPHILS % (AUTO) 0.9 % (0-1); EOSINOPHILS # (AUTO) 0.4 X10'3 (0-0.9); EOSINOPHILS % (AUTO) 4.8 % (0-6); HEMATOCRIT 22.2 % (42.0-52.0); HEMOGLOBIN 7.4 g/dl (14.0-17.9); LYMPHOCYTES # (AUTO) 1.2 X10'3 (1.1-4.8); LYMPHOCYTES % (AUTO) 15.6 % (21-51); MEAN CORPUSCULAR HEMOGLOBIN 26.9 PG (27.0-31.0); MEAN CORPUSCULAR VOLUME 81.3 FL (78-98); MEAN PLATELET VOLUME 6.7 FL (7.4-10.4); MONOCYTES # (AUTO) 0.8 X10'3 (0-0.9); MONOCYTES % (AUTO) 10.5 % (2-12); NEUTROPHILS # (AUTO) 5.3 X10'3 (1.8-7.7); NEUTROPHILS % (AUTO) 68.2 % (42-75); PLATELET COUNT 428 X10'3 (140-440); RED BLOOD COUNT 2.74 X10'6 (4.70-6.10); RED CELL DISTRIBUTION WIDTH 16.4 % (11.5-14.5); WHITE BLOOD COUNT 7.8 X10'3 (4.5-11.0)
[2019-01-11 15:50] LABS: ALANINE AMINOTRANSFERASE 45 U/L (12-78); ALBUMIN 2.9 G/DL (3.4-5.0); ALBUMIN/GLOBULIN RATIO 0.8 (1.1-1.5); ALKALINE PHOSPHATASE 98 IU/L (46-116); ANION GAP 7 (8-16); ASPARTATE AMINO TRANSFERASE 20 U/L (10-37); BILIRUBIN,TOTAL 0.3 MG/DL (0.1-1.0); BLOOD UREA NITROGEN 9 MG/DL (7-18); BUN/CREATININE RATIO 9.3 (5.4-32.0); CALCIUM 9.2 MG/DL (8.5-10.1); CHLORIDE 104 MMOL/L (99-107); CREATININE 0.97 MG/DL (0.60-1.10); GLUCOSE 114 MG/DL (70-104); POTASSIUM 3.8 MMOL/L (3.5-5.1); SODIUM 136 MMOL/L (135-145); TOTAL CARBON DIOXIDE 25.2 MMOL/L (24-32); TOTAL PROTEIN 6.7 G/DL (6.4-8.2); eGFR 79 ML/MIN
[2019-01-11 15:53] LABS: PARTIAL THROMBOPLASTIN TIME 27 SECONDS (22-32)
[2019-01-11 16:15] LABS: CLARITY,URINE CLEAR (Clear); COLOR,URINE YELLOW (Yellow); GLUCOSE, URINE NEGATIVE (Neg); KETONES,URINE NEGATIVE (Neg); LEUKOCYTE ESTERASE ,URINE NEGATIVE (Neg); NITRITES, URINE NEGATIVE (Neg); OCCULT BLOOD,URINE NEGATIVE (Neg); PROTEIN,URINE NEGATIVE (Neg); UROBILINOGEN,URINE 0.2 E.U/dL (0.2-1.0)
[2019-01-11 16:16] LABS: UA COLLECTION TYPE NON-SPECIFIED
[2019-01-11] MEDS ORDERED: potassium Cl 40MEQ/NS 500ml 500 ML IV PRN (16:35)
[2019-01-11] MEDS ORDERED: potassium CL 10mEq/100ml bag 100 ML IV PRN (16:35)
[2019-01-11] MEDS ORDERED: magnesium hydroxide 30ml (MOM) UD suspension PO PRN (16:35)
[2019-01-11] MEDS ORDERED: magnesium Cl slow-release 64mg tablet PO PRN (16:35)
[2019-01-11] MEDS ORDERED: magnesium 2GM in 50ml NS 50 ML IV PRN (16:35)
[2019-01-11] MEDS ORDERED: mag hydrox/Alum hydrox/simeth 30ml oral suspension PO PRN (16:35)
[2019-01-11] MEDS ORDERED: acetaminophen 325mg tablet PO PRN (16:35)
[2019-01-11] MEDS ORDERED: potassium Cl 20 mEq SR tablet PO PRN ×2 (16:35)
[2019-01-11] MEDS ORDERED: magnesium 4gm in 100ml NS 100 ML IV PRN (16:35)
[2019-01-11] MEDS ORDERED: ondansetron/PF 4mg/2ml inj IV PRN (16:35)
[2019-01-11] MEDS ORDERED: ESOM40CA49 PO (16:58)
[2019-01-11] MEDS ORDERED: ATOR20TA66 PO (16:58)
[2019-01-11] MEDS ORDERED: APIX5TAB3 PO (16:58)
[2019-01-11] MEDS ORDERED: METO50TA17 PO (16:58)
[2019-01-11] MEDS ORDERED: AMIO200T40 PO (16:58)
[2019-01-11] MEDS ORDERED: acetaminophen 325mg tablet PO ONE (17:30)
[2019-01-11] MEDS ORDERED: diphenhydrAMINE 25mg capsule PO ONE (17:30)
--- NOTE | 2019-01-11 19:00 | NUR ---
pt brought to unit via gurney from ER and placed in 347B. oriented to unit, call light within reach, in stable condition. will continue to monitor
[2019-01-11 19:42] LABS: BASOPHILS # (AUTO) 0.1 X10'3 (0-0.2); BASOPHILS % (AUTO) 0.8 % (0-1); EOSINOPHILS # (AUTO) 0.3 X10'3 (0-0.9); EOSINOPHILS % (AUTO) 3.7 % (0-6); HEMATOCRIT 23.9 % (42.0-52.0); HEMOGLOBIN 7.6 g/dl (14.0-17.9); LYMPHOCYTES # (AUTO) 1.3 X10'3 (1.1-4.8); LYMPHOCYTES % (AUTO) 14.3 % (21-51); MEAN CORPUSCULAR HEMOGLOBIN 25.8 PG (27.0-31.0); MEAN CORPUSCULAR HGB CONC 31.8 g/dL (33.0-36.5); MEAN CORPUSCULAR VOLUME 81.1 FL (78-98); MEAN PLATELET VOLUME 6.7 FL (7.4-10.4); MONOCYTES # (AUTO) 0.6 X10'3 (0-0.9); NEUTROPHILS # (AUTO) 6.7 X10'3 (1.8-7.7); NEUTROPHILS % (AUTO) 74.2 % (42-75); PLATELET COUNT 444 X10'3 (140-440); RED BLOOD COUNT 2.95 X10'6 (4.70-6.10); RED CELL DISTRIBUTION WIDTH 16.8 % (11.5-14.5); WHITE BLOOD COUNT 9.1 X10'3 (4.5-11.0)
[2019-01-11] MEDS: atorvastatin 20mg tablet PO SCH (20:21)
[2019-01-11] MEDS: metoprolol tartrate 50mg tablet PO SCH (20:22)
[2019-01-11] MEDS: amiodarone 200mg tablet PO SCH (20:22)
[2019-01-12] VITALS (9 sets, daily range): BP systolic 106–147; BP diastolic 67–91
--- NOTE | 2019-01-12 01:28 | NUR ---
Pt had BM, well formed, with blood in toilet. Pt states this is consistent with previous symptoms since starting anticoagulants post CABG surgery.
[2019-01-12 01:44] LABS: BASOPHILS # (AUTO) 0.1 X10'3 (0-0.2); EOSINOPHILS # (AUTO) 0.4 X10'3 (0-0.9); EOSINOPHILS % (AUTO) 4.6 % (0-6); HEMATOCRIT 23.7 % (42.0-52.0); HEMOGLOBIN 7.6 g/dl (14.0-17.9); LYMPHOCYTES # (AUTO) 1.8 X10'3 (1.1-4.8); LYMPHOCYTES % (AUTO) 21.6 % (21-51); MEAN CORPUSCULAR HEMOGLOBIN 26.3 PG (27.0-31.0); MEAN CORPUSCULAR HGB CONC 32.1 g/dL (33.0-36.5); MEAN CORPUSCULAR VOLUME 81.9 FL (78-98); MONOCYTES # (AUTO) 0.7 X10'3 (0-0.9); MONOCYTES % (AUTO) 8.3 % (2-12); NEUTROPHILS # (AUTO) 5.4 X10'3 (1.8-7.7); NEUTROPHILS % (AUTO) 64.5 % (42-75); PLATELET COUNT 382 X10'3 (140-440); RED CELL DISTRIBUTION WIDTH 16.5 % (11.5-14.5); WHITE BLOOD COUNT 8.4 X10'3 (4.5-11.0)
[2019-01-12 01:51] LABS: ALANINE AMINOTRANSFERASE 44 U/L (12-78); ALBUMIN 2.7 G/DL (3.4-5.0); ALBUMIN/GLOBULIN RATIO 0.8 (1.1-1.5); ALKALINE PHOSPHATASE 89 IU/L (46-116); ANION GAP 6 (8-16); ASPARTATE AMINO TRANSFERASE 17 U/L (10-37); BILIRUBIN,TOTAL 0.7 MG/DL (0.1-1.0); BLOOD UREA NITROGEN 8 MG/DL (7-18); BUN/CREATININE RATIO 8.7 (5.4-32.0); CALCIUM 9.3 MG/DL (8.5-10.1); CHLORIDE 104 MMOL/L (99-107); CREATININE 0.92 MG/DL (0.60-1.10); GLUCOSE 103 MG/DL (70-104); MAGNESIUM 2.1 MG/DL (1.5-2.4); POTASSIUM 3.9 MMOL/L (3.5-5.1); SODIUM 137 MMOL/L (135-145); TOTAL CARBON DIOXIDE 26.6 MMOL/L (24-32); TOTAL PROTEIN 6.1 G/DL (6.4-8.2); eGFR 84 ML/MIN
[2019-01-12] MEDS ORDERED: diltiazem 5mg/ml 5ml inj. IV ONE ×2 (06:00→17:50)
--- NOTE | 2019-01-12 06:04 | NUR ---
public works inspector here to push nilda.
--- NOTE | 2019-01-12 06:21 | NUR ---
Problems reprioritized. Patient report given, questions answered & plan of care reviewed with IZZY Powell.
--- NOTE | 2019-01-12 06:21 | NUR ---
Tele confirmed converted back to NSR.
--- NOTE | 2019-01-12 06:44 | NUR ---
Patient in room [facility] 347. I have received report from Joslyn MAGANA and had the opportunity to ask questions and assume patient care.
[2019-01-12] MEDS: amiodarone 200mg tablet PO SCH ×2 (07:40→21:30)
[2019-01-12] MEDS: pantoprazole 40mg Tablet.DR PO SCH (07:40)
[2019-01-12] MEDS: metoprolol tartrate 50mg tablet PO SCH (07:41)
[2019-01-12] MEDS: K and/or MAG REPLACEMENT MC SCH (07:43)
[2019-01-12 08:05] LABS: BASOPHILS # (AUTO) 0.1 X10'3 (0-0.2); BASOPHILS % (AUTO) 0.8 % (0-1); EOSINOPHILS # (AUTO) 0.4 X10'3 (0-0.9); EOSINOPHILS % (AUTO) 4.8 % (0-6); HEMATOCRIT 26.1 % (42.0-52.0); HEMOGLOBIN 8.6 g/dl (14.0-17.9); LYMPHOCYTES # (AUTO) 1.4 X10'3 (1.1-4.8); LYMPHOCYTES % (AUTO) 15.5 % (21-51); MEAN CORPUSCULAR HEMOGLOBIN 26.9 PG (27.0-31.0); MEAN CORPUSCULAR HGB CONC 33.1 g/dL (33.0-36.5); MEAN CORPUSCULAR VOLUME 81.3 FL (78-98); MEAN PLATELET VOLUME 6.9 FL (7.4-10.4); MONOCYTES # (AUTO) 0.8 X10'3 (0-0.9); MONOCYTES % (AUTO) 9.6 % (2-12); NEUTROPHILS # (AUTO) 6.1 X10'3 (1.8-7.7); NEUTROPHILS % (AUTO) 69.3 % (42-75); PLATELET COUNT 385 X10'3 (140-440); RED BLOOD COUNT 3.22 X10'6 (4.70-6.10); RED CELL DISTRIBUTION WIDTH 16.2 % (11.5-14.5); WHITE BLOOD COUNT 8.8 X10'3 (4.5-11.0)
[2019-01-12 13:29] LABS: BASOPHILS % (AUTO) 0.6 % (0-1); EOSINOPHILS # (AUTO) 0.2 X10'3 (0-0.9); EOSINOPHILS % (AUTO) 2.7 % (0-6); HEMATOCRIT 26.6 % (42.0-52.0); HEMOGLOBIN 8.7 g/dl (14.0-17.9); LYMPHOCYTES % (AUTO) 12.8 % (21-51); MEAN CORPUSCULAR HEMOGLOBIN 26.9 PG (27.0-31.0); MEAN CORPUSCULAR HGB CONC 32.6 g/dL (33.0-36.5); MEAN CORPUSCULAR VOLUME 82.4 FL (78-98); MEAN PLATELET VOLUME 6.8 FL (7.4-10.4); MONOCYTES # (AUTO) 0.6 X10'3 (0-0.9); MONOCYTES % (AUTO) 7.3 % (2-12); NEUTROPHILS # (AUTO) 6.1 X10'3 (1.8-7.7); NEUTROPHILS % (AUTO) 76.6 % (42-75); PLATELET COUNT 366 X10'3 (140-440); RED BLOOD COUNT 3.23 X10'6 (4.70-6.10); RED CELL DISTRIBUTION WIDTH 15.9 % (11.5-14.5)
--- NOTE | 2019-01-12 16:31 | NUR ---
patient seen by Dr Shah and DR Blevins . Regular diet initiated . patient still having bloody stools. Dr Shah aware. BID Hemoglobin ordered. will continue to monitor.
--- NOTE | 2019-01-12 17:24 | NUR ---
patient HR 130 b/p 145/92 o2 sats 97% . Tele called also wrt HR. will monitor.
--- NOTE | 2019-01-12 17:44 | NUR ---
second call from Tele patient has converted to afib. Dr Shah paged again.
[2019-01-12] MEDS ORDERED: diltiazem CD 120mg capsule (once-daily) PO ONE (17:50)
--- NOTE | 2019-01-12 17:59 | NUR ---
orders placed by Dr Shah for cardizem. PCU staff nurse paged to push dejuanzem. see emar
--- NOTE | 2019-01-12 18:16 | NUR ---
pharmacy called to say patient would need to be on a monitor to have second IV dose of cardizem. Cardizem 120mg given PO will continue to monitor. cgarge nurse aware
--- NOTE | 2019-01-12 18:53 | NUR ---
patient converted back to SR per telemedicine physician. cardizem IV not needed at this time. Dr Shah aware.
[2019-01-12] MEDS: psyllium seed 3.4 gm packet PO SCH ×2 (19:31→21:00)
[2019-01-12] MEDS: docusate sod 100mg capsule PO SCH ×2 (20:00→21:30)
[2019-01-12] MEDS: metoprolol tartrate 25mg tablet PO SCH (20:00)
[2019-01-12 20:22] LABS: HEMATOCRIT 27.4 % (42.0-52.0); MEAN CORPUSCULAR HEMOGLOBIN 26.8 PG (27.0-31.0); MEAN CORPUSCULAR HGB CONC 32.8 g/dL (33.0-36.5); MEAN CORPUSCULAR VOLUME 81.6 FL (78-98); MEAN PLATELET VOLUME 6.9 FL (7.4-10.4); PLATELET COUNT 393 X10'3 (140-440); RED BLOOD COUNT 3.35 X10'6 (4.70-6.10); RED CELL DISTRIBUTION WIDTH 16.1 % (11.5-14.5); WHITE BLOOD COUNT 8.9 X10'3 (4.5-11.0)
[2019-01-12] MEDS: atorvastatin 20mg tablet PO SCH (21:29)
--- NOTE | 2019-01-12 23:40 | NUR ---
Patient in room [facility] 347. I have received report from IZZY SANCHEZ and had the opportunity to ask questions and assume patient care.
--- NOTE | 2019-01-12 23:40 | NUR ---
Problems reprioritized. Patient report given, questions answered & plan of care reviewed with Joslyn MAGANA.
--- NOTE | 2019-01-12 23:53 | NUR ---
Tele called to say patients HR was dipping down in 40's. Checked on patient who was sleeping deeply. O2 Monitor put on patient back up to 87 HR. Charge nurse aware. will continue as staff to monitor.
--- NOTE | 2019-01-13 00:37 | NUR ---
Notify Dr. Solares for pt had aflutter and HR of 127bpm, BP 158/101, pt asymptomatic, and no new orders from
--- NOTE | 2019-01-13 01:58 | NUR ---
notified Dr. Solares for patient's another aflutter with HR of 130's, pt at rest sleeping Addendum: 01/13/19 at 0159 by Elvira Varma RN Amended: Links added.
--- NOTE | 2019-01-13 03:10 | NUR ---
called Dr. Solares for pt another aflutter, HR 130's bp 128/71, pt in no distress. Addendum: 01/13/19 at 0311 by Elvira Varma RN Amended: Links added.
--- NOTE | 2019-01-13 04:03 | NUR ---
Dr. Solares ordered continuous pulse oximeter for patient,
[2019-01-13 04:40] LABS: BASOPHILS # (AUTO) 0.1 X10'3 (0-0.2); BASOPHILS % (AUTO) 0.8 % (0-1); EOSINOPHILS # (AUTO) 0.3 X10'3 (0-0.9); EOSINOPHILS % (AUTO) 4.4 % (0-6); HEMATOCRIT 26.2 % (42.0-52.0); HEMOGLOBIN 8.7 g/dl (14.0-17.9); LYMPHOCYTES # (AUTO) 1.1 X10'3 (1.1-4.8); LYMPHOCYTES % (AUTO) 14.4 % (21-51); MEAN CORPUSCULAR HEMOGLOBIN 27.1 PG (27.0-31.0); MEAN CORPUSCULAR HGB CONC 33.1 g/dL (33.0-36.5); MEAN CORPUSCULAR VOLUME 81.9 FL (78-98); MEAN PLATELET VOLUME 6.9 FL (7.4-10.4); MONOCYTES # (AUTO) 0.8 X10'3 (0-0.9); MONOCYTES % (AUTO) 9.8 % (2-12); NEUTROPHILS # (AUTO) 5.4 X10'3 (1.8-7.7); NEUTROPHILS % (AUTO) 70.6 % (42-75); PLATELET COUNT 358 X10'3 (140-440); RED CELL DISTRIBUTION WIDTH 16.5 % (11.5-14.5); WHITE BLOOD COUNT 7.7 X10'3 (4.5-11.0)
[2019-01-13 04:46] LABS: ALANINE AMINOTRANSFERASE 40 U/L (12-78); ALBUMIN 2.6 G/DL (3.4-5.0); ALBUMIN/GLOBULIN RATIO 0.7 (1.1-1.5); ALKALINE PHOSPHATASE 95 IU/L (46-116); ANION GAP 7 (8-16); ASPARTATE AMINO TRANSFERASE 12 U/L (10-37); BILIRUBIN,TOTAL 0.6 MG/DL (0.1-1.0); BLOOD UREA NITROGEN 6 MG/DL (7-18); BUN/CREATININE RATIO 7.3 (5.4-32.0); CALCIUM 9.1 MG/DL (8.5-10.1); CHLORIDE 104 MMOL/L (99-107); CREATININE 0.82 MG/DL (0.60-1.10); GLUCOSE 125 MG/DL (70-104); MAGNESIUM 1.9 MG/DL (1.5-2.4); POTASSIUM 3.6 MMOL/L (3.5-5.1); SODIUM 136 MMOL/L (135-145); TOTAL CARBON DIOXIDE 25.3 MMOL/L (24-32); TOTAL PROTEIN 6.2 G/DL (6.4-8.2); eGFR > 90 ML/MIN
--- NOTE | 2019-01-13 06:07 | NUR ---
Patient in room [facility] 347. I have received report from Sarah Francis RN and had the opportunity to ask questions and assume patient care.
--- NOTE | 2019-01-13 06:07 | NUR ---
Problems reprioritized. Patient report given, questions answered & plan of care reviewed with IZZY Olguin. Addendum: 01/13/19 at 0607 by Elvira Varma RN Amended: Links added.
[2019-01-13 07:00] VITALS: BP 131/71
[2019-01-13 07:25] LABS: BASOPHILS # (AUTO) 0.1 X10'3 (0-0.2); EOSINOPHILS # (AUTO) 0.4 X10'3 (0-0.9); EOSINOPHILS % (AUTO) 4.5 % (0-6); HEMATOCRIT 29.3 % (42.0-52.0); HEMOGLOBIN 9.5 g/dl (14.0-17.9); LYMPHOCYTES # (AUTO) 1.3 X10'3 (1.1-4.8); LYMPHOCYTES % (AUTO) 14.2 % (21-51); MEAN CORPUSCULAR HEMOGLOBIN 26.6 PG (27.0-31.0); MEAN CORPUSCULAR HGB CONC 32.5 g/dL (33.0-36.5); MEAN CORPUSCULAR VOLUME 81.9 FL (78-98); MEAN PLATELET VOLUME 6.9 FL (7.4-10.4); MONOCYTES # (AUTO) 0.9 X10'3 (0-0.9); MONOCYTES % (AUTO) 9.4 % (2-12); NEUTROPHILS # (AUTO) 6.6 X10'3 (1.8-7.7); NEUTROPHILS % (AUTO) 70.9 % (42-75); PLATELET COUNT 397 X10'3 (140-440); RED BLOOD COUNT 3.58 X10'6 (4.70-6.10); RED CELL DISTRIBUTION WIDTH 16.4 % (11.5-14.5); WHITE BLOOD COUNT 9.3 X10'3 (4.5-11.0)
[2019-01-13] MEDS ORDERED: metoprolol tartrate 50mg tablet PO SCH (08:00)
[2019-01-13] MEDS: K and/or MAG REPLACEMENT MC SCH (08:00)
[2019-01-13] MEDS: amiodarone 200mg tablet PO SCH (09:19)
[2019-01-13] MEDS: pantoprazole 40mg Tablet.DR PO SCH (09:20)
[2019-01-13] MEDS: docusate sod 100mg capsule PO SCH (09:20)
[2019-01-13] MEDS: metoprolol tartrate 25mg tablet PO SCH (09:22)
[2019-01-13] MEDS ORDERED: METO25TA6 PO (09:49)
--- NOTE | 2019-01-13 10:47 | NUR ---
Called in Rx to [facility] [address] and spoke to Rosanna.
[2019-01-13 11:00] VITALS: BP 121/76
--- NOTE | 2019-01-13 12:29 | NUR ---
Patients discharge instructions reviewed with patient at bedside, all questions answered. Patients IV dc'd cannula intact. Patient tele dc'd for discharge. Patient states he has all his belongings. Patient taken to 's vehicle via wheelchair by Auxillary.
[2019-01-17] MEDS ORDERED: CALC625T68 PO (11:07)
[2019-01-17] MEDS ORDERED: METO50TA7 PO (11:07)
[2019-01-17] MEDS ORDERED: SENN-250 PO (11:07)
[2019-01-17] MEDS ORDERED: IRON PO (11:07)
== END 2019-01-13 12:20 | disposition home health service (06) | DRG 394 ==
LOC: ER 14:36 → SUR 3N 16:35 → CMPBEDREQ 19:44
PROVIDERS: ADMIT Internal Medicine; ATTEND Internal Medicine
PROC: 30233N1 Transfusion of Nonautologous Red Blood Cells into Peripheral Vein, Percutaneous Approach (ICD-10-PCS; principal; 2019-01-11)
PROC: 30233N1 Transfusion of Nonautologous Red Blood Cells into Peripheral Vein, Percutaneous Approach (ICD-10-PCS; 2019-01-12)
DX: K64.8 Other hemorrhoids (principal); D62 Acute posthemorrhagic anemia; E78.5 Hyperlipidemia, unspecified; I25.10 Atherosclerotic heart disease of native coronary artery without angina pectoris; I48.0 Paroxysmal atrial fibrillation; K21.9 Gastro-esophageal reflux disease without esophagitis; Z79.899 Other long term (current) drug therapy; Z95.1 Presence of aortocoronary bypass graft; Z79.82 Long term (current) use of aspirin; Z79.01 Long term (current) use of anticoagulants
CPT/HCPCS: 36415; 36430; 80053; 81003; 83735; 85025; 85027; 85610; 85730; 86885; 86900; 86901; 86920; 87070; 93005; 99285; G0378; J3490; P9016; Q0163

== ENCOUNTER 2019-01-18 07:44 | Day surgery (SDC) | payer BC ==
[~2019-01-18] VITALS: Ht 182.9 cm; Wt 108.9 kg
[2019-01-18] VITALS (21 sets, daily range): BP systolic 99–145; BP diastolic 61–94
[~2019-01-18 07:44] MED LIST changes: -APIX5TAB3 PO; -ASPI-1265 PO; -ATOR10TA PO; +ATOR20TA66 PO; +CALC625T68 PO; -CELE200C PO; -FERR324T PO; +IRON PO; -KRIL1CAP22 PO; -LIDO700A32 TOP; -LISI10TA4 PO; -MAGN400C PO; -METH-360 PO; -METO25TA6 PO; +METO50TA7 PO; +SENN-250 PO; -TURM5000 PO
[2019-01-18] MEDS ORDERED: famotidine 20mg tablet PO ONE (08:30)
[2019-01-18] MEDS ORDERED: ceFAZolin 2gm in dextrose, iso 100 ML IV ONE (08:30)
[2019-01-18] MEDS ORDERED: DOCUMENT DATE & TIME OF BETA-BLOCKER PO ONE (08:30)
[2019-01-18] MEDS ORDERED: ringers solution, lacted 1,000 ML IV SCH ×2 (08:30→10:37)
[2019-01-18 09:38] LABS: BASOPHILS # (AUTO) 0.1 X10'3 (0-0.2); BASOPHILS % (AUTO) 1.2 % (0-1); EOSINOPHILS # (AUTO) 0.1 X10'3 (0-0.9); EOSINOPHILS % (AUTO) 1.7 % (0-6); LYMPHOCYTES # (AUTO) 0.9 X10'3 (1.1-4.8); LYMPHOCYTES % (AUTO) 10.6 % (21-51); MEAN CORPUSCULAR HEMOGLOBIN 26.2 PG (27.0-31.0); MEAN CORPUSCULAR HGB CONC 31.7 g/dL (33.0-36.5); MEAN CORPUSCULAR VOLUME 82.5 FL (78-98); MONOCYTES # (AUTO) 0.6 X10'3 (0-0.9); MONOCYTES % (AUTO) 6.9 % (2-12); NEUTROPHILS # (AUTO) 6.4 X10'3 (1.8-7.7); NEUTROPHILS % (AUTO) 79.6 % (42-75); PRE OP HEMATOCRIT 28.8 % (42.0-52.0); PRE OP PLATELET COUNT 339 X10'3 (140-440); RED BLOOD COUNT 3.49 X10'6 (4.70-6.10); RED CELL DISTRIBUTION WIDTH 17.1 % (11.5-14.5)
[2019-01-18 09:46] LABS: PRE OP HEMOGLOBIN 9.1 g/dL (14.0-17.9)
[2019-01-18 10:35] LABS: ALBUMIN 3.2 G/DL (3.4-5.0); ALBUMIN/GLOBULIN RATIO 0.8 (1.1-1.5); ALKALINE PHOSPHATASE 107 IU/L (46-116); BLOOD UREA NITROGEN 10 MG/DL (7-18); BUN/CREATININE RATIO 11.2 (5.4-32.0); CALCIUM 9.8 MG/DL (8.5-10.1); CHLORIDE 106 MMOL/L (99-107); CREATININE 0.89 MG/DL (0.60-1.10); PRE OP ALT 43 U/L (30-65); PRE OP ANION GAP 7 (8-16); PRE OP AST 19 U/L (10-37); PRE OP BILIRUB, TOTAL 0.5 MG/DL (0.0-1.0); PRE OP GLUCOSE 117 MG/DL (70-104); PRE OP POTASSIUM 4.2 MMOL/L (3.4-5.1); PRE OP SODIUM 140 MMOL/L (135-145); TOTAL CARBON DIOXIDE 27.5 MMOL/L (24-32); TOTAL PROTEIN 7.1 G/DL (6.4-8.2); eGFR 87 ML/MIN
[2019-01-18] MEDS ORDERED: labetalol 20mg/4ml (5mg/ml) syringe IV PRN (10:40)
[2019-01-18] MEDS ORDERED: hydrALAZINE 20mg/ml inj. IV PRN (10:40)
[2019-01-18] MEDS ORDERED: ondansetron/PF 4mg/2ml inj IV PRN (10:40)
[2019-01-18] MEDS ORDERED: morphine 4 MG/ML inj SYRINge IV PRN ×4 (10:40)
[2019-01-18] MEDS: MIDAZolam 5mg/ml 2ml vial IV PRN ×2 (10:50→11:31)
[2019-01-18] MEDS ORDERED: ROPIVAcaine 0.5% (5mg/ml) 30ml vial ONE (12:05)
[2019-01-18] MEDS ORDERED: sevoflurane 250ml liquid IH ONE (12:21)
[2019-01-18] MEDS ORDERED: fentaNYL/PF 50MCG/1 ML 2ML syringe ONE (12:31)
[2019-01-18] MEDS ORDERED: LIDOcaine 2% (20mg/ml) 5ml vial ONE (12:32)
[2019-01-18] MEDS ORDERED: propofol inj 20 ML IV ONE (12:32)
[2019-01-18] MEDS ORDERED: dexamethasone sod phosphate 4mg/ml inj. ONE (12:36)
[2019-01-18] MEDS ORDERED: ondansetron/PF 4mg/2ml inj ONE (12:36)
--- NOTE | 2019-01-18 13:30 | NUR ---
Received from OR via BED , accompanied by Anesthesiologist DR PATTERSON and report given by Anesthesiolgist. PATIENT WAKING UP, DENIES PAIN, V/S WNL, NEUROVASCULAR CHECKLS INTACT, 20G PIV TO LUE, SCD ON, DRESSING TO RECTUM WITH SCANT DRAINAGE
[2019-01-18] MEDS ORDERED: meperidine/PF 25mg/ml syringe ONE (14:02)
[2019-01-18] MEDS ORDERED: oxyCODONE/APAP 5-325mg tablet PO ONE (14:10)
--- NOTE | 2019-01-18 16:00 | NUR ---
PATIENT HAS BEEN HELD OVER IN RECOVER DUE TO INABLITLITY TO VOID. DR GRAMAJO AWARE AND SAID TO CONTINUE TO ENCOURAGE FLUID. BLADDER SCAN IS ONLY 18CC. 1000CC INFUSED AND 1000CC FLUIDS DRANK, PATIENT AMBULATING FREQUENTLY.
--- NOTE | 2019-01-18 18:06 | NUR ---
PATIENT STILL UNABLE TO VOID, BLADDER SCANNED FOR 280CC, ENCOURAGED MORE WATER PO
--- NOTE | 2019-01-18 18:30 | NUR ---
PATIENT A&OX4, DENIES PAIN, V/S WNL, NEUROVASCULAR CHECKLS INTACT, 20G PIV TO LUE D/C, SCD OFF, DRESSING TO RECTUM WITH SCANT DRAINAGE. I HAVE REVIEWED D/C INSTRUCTIONS WITH PATIENT AND FAMILY AND THEY HAVE VERBALIZED UNDERSTANDING OF SITZ BATH AND MEDS. PATIENT HAS VOIDED 170 CC AND WAS BLADDER SCANNED FOR 50CC POST VOID. PATIENT D/C HOME WITH ALL BELONGINGS AND FAMILY GAVE TRANSPORT HOME.
== END 2019-01-18 18:30 | disposition home or self-care (01) ==
LOC: PAS 07:44
PROVIDERS: ATTEND Surgery
DX: K64.3 Fourth degree hemorrhoids (principal); K21.9 Gastro-esophageal reflux disease without esophagitis; I48.91 Unspecified atrial fibrillation; D64.9 Anemia, unspecified; I10 Essential (primary) hypertension; Z95.5 Presence of coronary angioplasty implant and graft; Z98.890 Other specified postprocedural states; Z79.899 Other long term (current) drug therapy; Z72.89 Other problems related to lifestyle
CPT/HCPCS: 36415; 46260; 80053; 85025; 86885; 86900; 86901; A6224; J0690; J1100; J2001; J2175; J2250; J2270; J2405; J2704; J3010; J7120; A6449; A7000; J2795